=== PATIENT | female | born 1990 | race Hispanic/Latino ===

== ENCOUNTER 2019-08-13 09:30 | Emergency (ER) | payer OTHER ==
[2019-08-13] MEDS ORDERED: Ondansetron ODT 4 MG TAB ONE (10:13)
== END 2019-08-13 12:03 | disposition home or self-care (01) ==
LOC: ERS 09:30
DX: B34.9 Viral infection, unspecified (principal); G43.909 Migraine, unspecified, not intractable, without status migrainosus
CPT/HCPCS: 87804; 99283; Q0162